=== PATIENT | male | born 1985 | race Caucasian/White ===

== ENCOUNTER 2022-02-21 16:57 | Emergency (ER) | payer SELFPAY ==
[2022-02-21 17:33] LABS: HEMOGLOBIN 15.3 gm/dl (14.0-17.5); WHITE BLOOD COUNT 17.2 K/UL (4.5-11.0)
[2022-02-21 18:15] LABS: BUN/CREATININE RATIO 24 (0-10)
== END 2022-02-22 11:10 ==
LOC: ER1 16:57 → EDBD 16:57 → ER1 02-22 11:10
PROVIDERS: Family Medicine
DX: T50.7X2A Poisoning by analeptics and opioid receptor antagonists, intentional self-harm, initial encounter (principal); F19.10 Other psychoactive substance abuse, uncomplicated; M62.82 Rhabdomyolysis; Z85.6 Personal history of leukemia
CPT/HCPCS: 70450; 71045; 80053; 80307; 81001; 82550; 82553; 84484; 85025; 93005; 99285; G0480; J2250; U0002